=== PATIENT | female | born 1930 | race Caucasian/White ===

== ENCOUNTER 2016-04-09 13:15 | Inpatient (IN) | payer OTHER, MEDICARE ==
[~2016-04-09] VITALS: Ht 160 cm; Wt 59.0 kg
--- NOTE | ~2016-04-09 | EKG ---
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 : 1930 Requested By: Jose Liao Order Number: [id number] MD: Surinder Lange Measurements Intervals [place] Rate: 62 P: -31 AR: 217 QRS: -24 QRSD: 97 T: -10 QT: 427 QTc: 434 Interpretive Statements Sinus rhythm Supraventricular bigeminy Borderline prolonged AR interval Abnormal R-wave progression, early transition LVH with secondary repolarization abnormality Baseline wander in lead(s) V1,V2,V6 Compared to ECG 01/22/2016 13:26:20 Atrial premature complex(es) now present Electronically Signed On 04-09-2016 16:50:40 [employer] by Surinder Lange [email or web address] <ELECTRONICALLY SIGNED> By: Surinder Lange MD 04/09/16 1650 1325 1325 Surinder Lange MD /EPI
--- NOTE | ~2016-04-09 | 2DMMODE ---
[facility] [place] [employer] [address] 2 D/M-MODE ECHOCARDIOGRAM Name: GRACE DOVE Room #: 218-P [facility] IN M.R.#: [id number] Admission: 04/09/16 Attend Phys: Penelope Duenas Discharge: Date of : 34 Date of Service: 04/10/16 1247 Report #: [id number] THIS REPORT FOR: //name// Transthoracic Echocardiography Ordering physician: Penelope Jameson Referring physician: Penelope Jameson Ross Carrier Driver: Anastacia Miramontes Indications/History: NSTEMI. Hx: HTN, HLP BP: 153 / HR: 64bpm Height: 63in Weight: 126.7lb 89 Study data: M-mode, complete 2D, complete spectral Doppler, and color Doppler. Location: Bedside. Routine. Image quality was fair. The study was technicallydifficult due to poor acoustic window availability and altered mental status of patient. 2D measurements Normal Normal LVID ED 43.2mm 36-57 IVS ED 12.2mm 6-11 LVID ES 30.6mm 23-40 LVPW ED 11.5mm 6-11 LA volume 21ml/m2 16-28 AoRoot diam 34.6mm 21-37 index ED LVOT diameter 21mm 18-23 Findings: Left ventricle: The cavity size was normal. Wall thickness was increased in a pattern of mild LVH. Systolic function was normal. The estimated ejection fraction was in the range of 55%. Wall motion was normal. Right ventricle: Poorly visualized but appears normal in size in function. Right atrium: The atrium was normal in size. Left atrium: The atrium was normal in size. Volume index: 21ml/m2 (S). Atrial septum: Poorly visualized but appears normal in size. [address] [address] 2 D/M-MODE ECHOCARDIOGRAM Name: GRACE DOVE Room #: 218-P [facility] IN M.R.#: [id number] Admission: 04/09/16 Attend Phys: Penelope Duenas Discharge: Date of : 34 Date of Service: 04/10/16 1247 Report #: [id number] Aortic valve: Mildly calcified leaflets. Doppler: There was no stenosis. Mild regurgitation. Peak velocity: 126.9cm/s (S). Mitral valve: Mildly calcified annulus. Mildly thickened leaflets . Doppler: There was no evidence for stenosis. Mild regurgitation. Peak E-wave velocity: 72.4cm/s. Peak gradient: 2.1mm Hg (D). Peak A-wave velocity: 109.6cm/s. Tricuspid valve: Poorly visualized. Doppler: There was no evidence for stenosis. Trivial regurgitation. Regurgitant peak velocity: 197.5cm/s. Peak RV-RA gradient: 16mm Hg (S). Pulmonic valve: Poorly visualized. Pericardium: There was no pericardial effusion. Aorta: Aortic root: The aortic root was normal in size. Pulmonary artery: Systolic pressure was estimated to be 16mm Hg plus the right atrial pressure. Diastolic function: Doppler parameters are consistent with abnormal left ventricular relaxation (grade 1 diastolic dysfunction). Systemic veins: Inferior vena cava: Poorly visualized. Conclusions 1. Left ventricle: Systolic function was normal. The estimated ejection fraction was in the range of 55%. Wall motion was normal. Doppler parameters are consistent with abnormal left ventricular relaxation (grade 1 diastolic dysfunction). 2. Aortic valve: Mildly calcified leaflets. There was no stenosis. Mild regurgitation. 3. Mitral valve: Mildly calcified annulus. Mildly thickened leaflets . Mild regurgitation. 4. Pericardium, extracardiac: There was no pericardial effusion. <ELECTRONICALLY SIGNED> By: Ash Hernandez MD, [facility] 04/10/16 1435 1247 1435 Ash Hernandez MD, FAC /jesus
[~2016-04-09 13:15] MED LIST: AMLODIPINE BESY10 MG PO; ASPIR 8181 MG PO; ATIVAN1 MG PO; CEFTIN500 MG PO; CENTRUM SILVER1 EAC4 PO; COZAAR100 MG PO; DIPHENHIST50 MG PO; HYDROCODONE-AP1 EAC6 PO; LIPITOR 20 MG T20 M1; LIPITOR 20 MG T20 M1 PO; TOPROL XL100 MG PO; TRIAMTERENE-HC1 EAC2; VITAMIN D 5050000 I1 PO; ZYRTEC10 MG PO
[2016-04-09 13:16] VITALS: BP 145/75
[2016-04-09 13:25] LABS: ABG SAMPLE TYPE ARTERIAL; BE(vivo) 1.7 mmol/L (-2 to +3); HCO3 25.2 mmol/L (22.0-26.0); LACTATE 1.53 mmol/L (0.5-2.0); O2(CT) 19.4 mL/dL (15.0-23.0); O2Hb 98.6 % (92.0-98.0); PCO2 36.3 mmHg (35.0-45.0); PO2 236.3 mmHg (80.0-100.0); STICK SITE L.RADIAL; sO2 99.6 % (92.0-98.0); tCO2 26.4 mmol/L (24.0-30.0)
[2016-04-09 13:36] LABS: ABSOLUTE NEUTROPHILS 4.1 thou/uL (1.4-8.2); BASOPHILS 1.1 % (0.0-2.0); EOSINOPHILS 3.8 % (0.0-3.0); HEMATOCRIT 38.5 % (37.0-47.0); HEMOGLOBIN 13.1 gm/dL (12.0-15.0); MCH 28.9 pg (26.0-34.0); MCHC 34.1 % (28.0-37.0); MCV 84.8 fL (80.0-100.0); MONOCYTES 8.8 % (1.0-8.0); PLATELET COUNT 373 thou/uL (150-400); POLYS 44.3 % (36.0-66.0); RBC 4.54 mil/uL (4.20-5.00); RDW 14.8 % (10.5-14.5); WBC 9.4 thou/uL (4.0-11.0)
[2016-04-09 13:43] LABS: MANUAL DIFF NO
[2016-04-09 13:46] LABS: CALCIUM 9.3 mg/dL (8.5-10.1); CREATININE 1.1 mg/dL (0.6-1.3); POTASSIUM 3.3 mmol/L (3.5-5.1)
[2016-04-09 13:51] LABS: APTT 21.8 Seconds (24.5-32.8); PROTIME 10.7 Seconds (9.3-11.4)
[2016-04-09 14:04] LABS: CK-MB MASS 3.4 ng/mL (<0.5-3.6); TOTAL BILIRUBIN 0.4 mg/dL (<0.1-1.0); TOTAL PROTEIN 6.7 g/dL (6.4-8.2)
[2016-04-09 14:08] LABS: TROPONIN-I 2.25 ng/mL (<0.04-0.07)
[2016-04-09 14:38] LABS: URINE BILIRUBIN NEGATIVE (Negative); URINE BLOOD TRACE (Negative); URINE COLOR YELLOW; URINE GLUCOSE-RANDOM* NEGATIVE (Negative); URINE KETONES NEGATIVE (Negative); URINE LEUKOCYTES-REFLEX NEGATIVE (Negative); URINE PROTEIN (DIPSTICK) NEGATIVE (Negative); URINE SPECIFIC GRAVITY 1.015 (1.003-1.035); URINE UROBILINOGEN 0.2 E.U./dl (0.2-1.0)
[2016-04-09 14:46] LABS: AMP/METHAMP Negative (Negative); BARBITURATES Negative (Negative); BENZODIAZEPINES Negative (Negative); COCAINE Negative (Negative); METHADONE Negative (Negative); OPIATES Negative (Negative); PCP Negative (Negative); THC Negative (Negative)
[2016-04-09 16:33] VITALS: BP 127/91
[2016-04-09] MEDS ORDERED: HYDROCODONE-AP1 EAC6 PO (17:06)
[2016-04-09 17:10] VITALS: BP 152/72
[2016-04-09] MEDS ORDERED: NORVASC5 MG PO (18:03)
[2016-04-09 20:36] VITALS: BP 146/80
[2016-04-10 00:48] VITALS: BP 147/89
[2016-04-10 04:49] LABS: ALBUMIN 2.8 g/dL (3.4-5.0); CALCIUM 8.9 mg/dL (8.5-10.1); PHOSPHORUS 3.2 mg/dL (2.5-4.9); POTASSIUM 3.7 mmol/L (3.5-5.1)
[2016-04-10 04:54] LABS: TROPONIN-I 1.18 ng/mL (<0.04-0.07)
[2016-04-10 05:53] VITALS: BP 171/80
[2016-04-10 08:48] VITALS: BP 153/89
[2016-04-10 15:34] VITALS: BP 148/84
[2016-04-10 19:19] VITALS: BP 181/75
[2016-04-10 23:52] VITALS: BP 141/76
[2016-04-11 04:17] VITALS: BP 171/86
[2016-04-11 08:00] VITALS: BP 158/75
== END 2016-04-11 13:53 | disposition home health service (06) | DRG 281 ==
LOC: ER 13:15 → EROBS 14:49 → 2N 14:49
PROVIDERS: Emergency Medicine; Hospitalist
DX: I21.4 Non-ST elevation (NSTEMI) myocardial infarction (principal); E44.1 Mild protein-calorie malnutrition; R55 Syncope and collapse; G43.909 Migraine, unspecified, not intractable, without status migrainosus; R00.1 Bradycardia, unspecified; E86.0 Dehydration; Z66 Do not resuscitate; F03.90 Unspecified dementia, unspecified severity, without behavioral disturbance, psychotic disturbance, mood disturbance, and anxiety; I10 Essential (primary) hypertension; E78.5 Hyperlipidemia, unspecified; F41.9 Anxiety disorder, unspecified; I25.2 Old myocardial infarction; Z87.891 Personal history of nicotine dependence; Z90.710 Acquired absence of both cervix and uterus; Z90.49 Acquired absence of other specified parts of digestive tract; Z88.0 Allergy status to penicillin; Z88.8 Allergy status to other drugs, medicaments and biological substances; Z79.82 Long term (current) use of aspirin
CPT/HCPCS: 10081